=== PATIENT | female | born 1955 | race Caucasian/White ===

== ENCOUNTER → 2018-03-09 11:48 | Outpatient (CLI) | payer OTHER, SELFPAY | PROVIDERS: Family Provider Family Medicine; PCP Family Medicine; Visit Provider Family Medicine | DX: D70.1 Agranulocytosis secondary to cancer chemotherapy (principal); N76.0 Acute vaginitis; R10.31 Right lower quadrant pain; T45.1X5A Adverse effect of antineoplastic and immunosuppressive drugs, initial encounter; Z85.42 Personal history of malignant neoplasm of other parts of uterus | CPT/HCPCS: 87070; 87077; 87186; 87205; 87210 ==

== ENCOUNTER → 2018-08-02 07:09 | Outpatient (CLI) | payer OTHER, SELFPAY ==
[2018-08-02 08:49] LABS: Appearance Urine UA CLEAR; Bilirubin Urine UA NEGATIVE (NEGATIVE); Color Urine UA YELLOW; Glucose Urine UA NEGATIVE (Negative); Ketones Urine UA NEGATIVE (NEGATIVE); Leukocyte Esterase Urine UA NEGATIVE (NEGATIVE); Nitrite Urine UA NEGATIVE (Negative); Occult Blood Urine UA NEGATIVE (Negative); Protein Urine UA TRACE (Negative); Urobilinogen Urine UA 0.2 E.U./dL (0.2); pH Urine UA 6.5 (4.5-8.0)
[2018-08-02 08:51] LABS: Add Manual Diff / Slide Review NO; Basophils Absolute Auto 0 /uL (0-100); Basophils Percent Auto 0.4 % (0-2); Eosinophils Absolute Auto 100 /uL (0-450); Eosinophils Percent Auto 1.8 % (2-4); Hematocrit 40.7 % (36-46); Hemoglobin 13.6 g/dL (12.0-16.0); Lymphocytes Absolute Auto 1700 /uL (1100-4500); Lymphocytes Percent Auto 35.7 % (25-40); Mean Corpuscular HGB Conc 33.4 % (30-36); Mean Corpuscular Hemoglobin 29.8 PG (26-34); Monocytes Absolute Auto 400 /uL (0-900); Monocytes Percent Auto 8.1 % (3-14); Neutrophils Absolute Auto 2500 /uL (1500-7000); Platelet Count 191 X10^3/uL (150-400); Red Blood Cell Count 4.57 X10^6/uL (4.0-5.2); Red Cell Distribution Width 12.8 % (11.6-14.8); White Blood Cell Count 4.7 X10^3/uL (4.5-11.0)
[2018-08-02 09:09] LABS: Alanine Aminotransferase 27 IU/L (9-52); Albumin 4.5 g/dL (3.5-5.0); Albumin Globulin Ratio 1.7 (1.0-2.8); Alkaline Phosphatase 62 U/L (38-126); Aspartate Aminotransferase 24 IU/L (14-36); BUN Creatinine Ratio 32.9 (6-22); Bilirubin Total 0.3 mg/dL (0.2-1.3); Blood Urea Nitrogen 23 mg/dL (7-17); Calcium 9.7 mg/dL (8.4-10.2); Carbon Dioxide 25 mmol/L (22-32); Chloride 106 mmol/L (98-107); Cholesterol 207 mg/dL (140-199); Estimated Glomerular Filt Rate > 60.0 mL/min (>60); Globulin 2.7 g/dL (1.7-4.1); Glucose 94 mg/dL (80-110); HDL Cholesterol 66 mg/dL (40-60); HEMOLYSIS < 15 (0-50); LDL Cholesterol Calculated 125 mg/dL (<100); Potassium 4.6 mmol/L (3.4-5.1); Sodium 141 mmol/L (137-145); Total Protein 7.2 g/dL (6.3-8.2); Triglycerides 82 mg/dL (35-150)
[2018-08-02 09:36] LABS: Thyroid Stimulating Hormone 2.45 uIU/mL (0.47-4.68)
== END ==
PROVIDERS: PCP Family Medicine; Visit Provider Family Medicine
DX: C54.1 Malignant neoplasm of endometrium (principal); G62.0 Drug-induced polyneuropathy; T45.1X5A Adverse effect of antineoplastic and immunosuppressive drugs, initial encounter; Z13.220 Encounter for screening for lipoid disorders; Z13.29 Encounter for screening for other suspected endocrine disorder
CPT/HCPCS: 36415; 80053; 80061; 81003; 84443; 85025

== ENCOUNTER 2018-10-14 13:08 | Outpatient (RCR) | payer OTHER, SELFPAY ==
--- NOTE | 2018-10-14 17:35 | ST.OPIE ---
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 She finished chemo in March, finished radiation in May. 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 This has caused her boss to say she is not doing well in her job. She is also very fragile emotionally and cries easily. When asked to describe her cognitive disabilities, Jodee described difficulty with concentration,focus and following directions/ instructions. 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. Educational Status Education Level Graduate school Occupational Status Occupation Status employed Previous Therapy Previous Speech-Language Therapy No - Informal Assessment Receptive Language Normal Yes Expressive Language Normal Yes Articulation Normal Yes Formal Assessment Standardized Test Scales of Cognitive and Communication Ability for Neurorehabilitation Administration Complete Multiple Scores to Report 8 subtests converted to a SCCAN Index score Results The SCCAN results for each of the 8 are as listed below: Oral Expression 94.7% Orientation 100% Memory 78.9% Speech Comprehension 92.3% Reading Comprehension 91.6% Writing 100% Attention 93.7% Problem Solving 100% The results of the SCCAN overall indicated that Jodee's cognitive ability is WLN. However based on the scores for individual subtests, Jodee's score for memory was notably lower than the other subtests, supporting her initial c/o difficulty with concentration, focus and following directions/ instructions. Within the Memory subtest, it was observed that she would omit partial responses or misinterpret the instructions given. It would be easy to see how such errors would impact her ability to perform at her job in the manner she did prior to her chemotherapy. therapeutic options were discussed and provided to Jodee. For example, using a tere tablet,or voice tere on her phone to keep track of details, video/audio taping her discussions with her colleagues of upcoming projects at work, etc. A patient-directed article on the cognitive changes following chemo therapy was given to Jodee to use as a resource of strategies and techniques to try. She expressed her gratitude. She noted that she would read the article, try the strategies and contact this clinic if she was in need of further services. Jodee was discharged after the session/ evaluation. - Cognition Orientation Skill Level WNL Attention Skill Level WNL Problem Solving/Reasoning/Judgment Skill Level WNL Divergent Naming Skill Level WNL Category Naming/Identification Skill Level WNL Sequencing Skill Level WNL Auditory Math Skill Level WNL Clock Drawing Skill Level WNL - Memory Short Term Memory Skill Level Mildly Impaired Immediate Recall Skill Level WNL Word Recall Skill Level WNL Story Recall Skill Level WNL Long-Term Memory Skill Level WNL - Total Time Full Evaluation Time 65
== END 2018-10-22 12:42 | disposition home or self-care (01) ==
LOC: SP 13:08
PROVIDERS: PCP Family Medicine; Visit Provider Family Medicine
DX: R41.3 Other amnesia (principal); G62.0 Drug-induced polyneuropathy; T45.1X5A Adverse effect of antineoplastic and immunosuppressive drugs, initial encounter; F32.9 Major depressive disorder, single episode, unspecified
CPT/HCPCS: 96125

== ENCOUNTER → 2019-07-18 07:12 | Outpatient (CLI) | payer OTHER, SELFPAY ==
[2019-07-18 07:58] LABS: Appearance Urine UA CLEAR; Bilirubin Urine UA NEGATIVE (NEGATIVE); Color Urine UA YELLOW; Glucose Urine UA NEGATIVE (Negative); Ketones Urine UA NEGATIVE (NEGATIVE); Leukocyte Esterase Urine UA NEGATIVE (NEGATIVE); Nitrite Urine UA NEGATIVE (Negative); Occult Blood Urine UA TRACE-LYSED (Negative); Protein Urine UA TRACE (Negative); Urobilinogen Urine UA 0.2 E.U./dL (0.2)
[2019-07-18 08:04] LABS: pH Urine UA 5.5 (4.5-8.0)
[2019-07-18 08:12] LABS: Add Manual Diff / Slide Review NO; Basophils Absolute Auto 0 /uL (0-100); Basophils Percent Auto 0.7 % (0-2); Eosinophils Absolute Auto 100 /uL (0-450); Eosinophils Percent Auto 1.4 % (2-4); Hematocrit 43.6 % (36-46); Hemoglobin 14.5 g/dL (12.0-16.0); Lymphocytes Absolute Auto 1600 /uL (1100-4500); Lymphocytes Percent Auto 30.5 % (25-40); Mean Corpuscular HGB Conc 33.3 % (30-36); Mean Corpuscular Hemoglobin 29.5 PG (26-34); Mean Corpuscular Volume 88.4 fL (80-100); Monocytes Absolute Auto 400 /uL (0-900); Monocytes Percent Auto 7.9 % (3-14); Neutrophils Absolute Auto 3200 /uL (1500-7000); Neutrophils Percent Auto 59.5 % (50-75); Platelet Count 219 X10^3/uL (150-400); Red Blood Cell Count 4.93 X10^6/uL (4.0-5.2); Red Cell Distribution Width 13.7 % (11.6-14.8); White Blood Cell Count 5.3 X10^3/uL (4.5-11.0)
[2019-07-18 08:22] LABS: Alanine Aminotransferase 20 IU/L (<35); Albumin 4.5 g/dL (3.5-5.0); Albumin Globulin Ratio 1.8 (1.0-2.8); Alkaline Phosphatase 69 U/L (38-126); Aspartate Aminotransferase 23 IU/L (14-36); BUN Creatinine Ratio 21.3 (6-22); Bilirubin Total 0.5 mg/dL (0.2-1.3); Blood Urea Nitrogen 17 mg/dL (7-17); Carbon Dioxide 27 mmol/L (22-32); Chloride 107 mmol/L (98-107); Cholesterol 227 mg/dL (140-199); Estimated Glomerular Filt Rate > 60.0 mL/min (>60); Globulin 2.5 g/dL (1.7-4.1); Glucose 113 mg/dL (80-110); HDL Cholesterol 76 mg/dL (40-60); HEMOLYSIS < 15 (0-50); LDL Cholesterol Calculated 136 mg/dL (<100); Potassium 4.9 mmol/L (3.4-5.1); Sodium 142 mmol/L (137-145); Triglycerides 74 mg/dL (35-150)
== END ==
PROVIDERS: PCP Family Medicine; Visit Provider Family Medicine
DX: G62.9 Polyneuropathy, unspecified (principal); T45.1X5A Adverse effect of antineoplastic and immunosuppressive drugs, initial encounter; Z85.42 Personal history of malignant neoplasm of other parts of uterus
CPT/HCPCS: 36415; 80053; 80061; 81003; 84443; 85025

== ENCOUNTER → 2019-08-15 08:52 | Outpatient (CLI) | payer OTHER, SELFPAY ==
--- NOTE | 2019-08-15 08:54 | DI.RAD.S_ITS ---
PROCEDURE: XR LUMBAR SPINE MIN 4V INDICATIONS: Persistent lower back pain TECHNIQUE: 5 views of the lumbar spine were acquired. COMPARISON: [facility], CT, CT CHEST ABD PEL W CON, 11/13/2017, 8:05. [facility], CR, L-SPINE 2-3 VIEWS, 10/05/2017, 11:03. FINDINGS: Bones: 5 nonrib-bearing vertebrae are present. There is normal bony alignment. No vertebral body compression fractures. No suspicious bony lesions. There is mild degenerative change with endplate sclerosis, small osteophytes, and intervertebral disc space height loss with calcification at L5-S1. Mild L4-L5 and L5-S1 facet joint hypertrophy. Soft tissues: Overlying bowel gas pattern is normal. No suspicious soft tissue calcifications. Oblique images: No pars defects. IMPRESSION: No compression fracture. Mild degenerative change and degenerative disc disease at L5-S1. Dictated by: Ivan Clifford M.D. on 08/15/2019 at 9:30 Approved by: Ivan Clifford M.D. on 08/15/2019 at 9:33
== END ==
PROVIDERS: PCP Family Medicine; Referring Provider Family Medicine; Visit Provider Family Medicine
DX: M54.5 Low back pain (principal); M51.37 Other intervertebral disc degeneration, lumbosacral region; M47.817 Spondylosis without myelopathy or radiculopathy, lumbosacral region
CPT/HCPCS: 72110